=== PATIENT | male | born 1960 | race Caucasian/White ===

== ENCOUNTER → 2019-02-03 | Outpatient (CLI) | payer OTHER ==
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
--- NOTE | 2019-02-10 11:29 | P.ARTDOP ---
Arterial Doppler LOWER EXTREMITY ARTERIAL DOPPLER: DATE OF SERVICE: 02/03/2019 Reason for study: Bilateral leg pain. Doppler waveforms: Multiphasic bilaterally throughout. Pulse volume recording: []. Pressure gradients: None. Ankle-brachial indices: Greater than 1 bilaterally. Toe pressures: [] on the right, [] on the left Impression: Normal study.
== END | disposition home or self-care (01) ==
LOC: RADUSWWP 06:46
PROVIDERS: ATTEND Family Medicine
DX: M79.669 Pain in unspecified lower leg (principal)
CPT/HCPCS: 93922; 93970

== ENCOUNTER → 2019-06-29 | Outpatient (CLI) | payer OTHER ==
--- NOTE | 2019-07-01 12:01 | ECHOF ---
Referral Reason:I10 hypertension MEASUREMENTS -------- HEIGHT: 182.9 cm WEIGHT: 158.8 kg BP: RVIDd: 4.1 cm (< 3.3) IVSd: 1.7 cm (0.6 - 1.1) LVIDd: 5.2 cm (3.9 - 5.3) LVPWd: 1.3 cm (0.6 - 1.1) IVSs: 1.8 cm LVIDs: 3.4 cm LVPWs: 1.9 cm LA Diam: 4.3 cm (2.7 - 3.8) LAESV Index (A-L): 26.50 ml/m Ao Diam: 3.2 cm (2.0 - 3.7) AV Cusp: 1.8 cm (1.5 - 2.6) LA Diam: 4.7 cm (2.7 - 3.8) MV EXCURSION: 15.748 mm (> 18.000) MV EF SLOPE: 58 mm/s (70 - 150) EPSS: 0.4 cm MV E Mykel: 0.37 m/s MV DecT: 239 ms MV A Mykel: 0.51 m/s MV E/A Ratio: 0.72 RAP: 5.00 mmHg RVSP: 13.52 mmHg FINDINGS -------- Sinus rhythm. This was a technically adequate study. Morbid Obesity The left ventricular size is normal. There is severe concentric left ventricular hypertrophy. Ove rall left ventricular systolic function is normal with, an EF between 55 - 60 %. The right ventricle is severely enlarged. Normal LA size by volume 22+/-6 ml/m2. The right atrial size is normal. The aortic valve is trileaflet, and appears structurally normal. No aortic stenosis or regurgitation. The mitral valve is normal. Mild mitral regurgitation is present. Mild tricuspid regurgitation present. Right ventricular systolic pressure is normal at < 35 mmHg. The right ventricular systolic pressure, as measured by Doppler, is 13.52mmHg. There is no pulmonic regurgitation present. The aortic root size is normal. Echo free space indicative of a pericardial fat pad. CONCLUSIONS -------- 1. Sinus rhythm. 2. Morbid Obesity 3. The left ventricular size is normal. 4. There is severe concentric left ventricular hypertrophy. 5. Overall left ventricular systolic function is normal with, an EF between 55 - 60 %. 6. The right ventricle is severely enlarged. 7. Normal LA size by volume 22+/-6 ml/m2. 8. The aortic valve is trileaflet, and appears structurally normal. No aortic stenosis or regurgitati on. 9. Mild mitral regurgitation is present. 10. Mild tricuspid regurgitation present. 11. Right ventricular systolic pressure is normal at < 35 mmHg. 12. There is no pulmonic regurgitation present. 13. Echo free space indicative of a pericardial fat pad. VEST BUSHELER: Veronique Conte RDCS
== END | disposition home or self-care (01) ==
LOC: RADECHMAIN 11:25
PROVIDERS: ATTEND Family Medicine
DX: E66.01 Morbid (severe) obesity due to excess calories (principal); I08.1 Rheumatic disorders of both mitral and tricuspid valves; I10 Essential (primary) hypertension
CPT/HCPCS: 93306

== ENCOUNTER → 2019-07-19 | Outpatient (CLI) | payer OTHER | END | disposition home or self-care (01) | LOC: RADMRIMAIN 06:47 | PROVIDERS: ATTEND Family Medicine | DX: Z53.9 Procedure and treatment not carried out, unspecified reason (principal) ==

== ENCOUNTER 2019-07-29 10:30 | Inpatient (IN) | payer OTHER ==
--- NOTE | 2019-07-29 11:48 | ED ---
General Adult HPI - General Chief complaint: Neuro Symptoms/Deficit Stated complaint: rt sided facial numbness, vision problem Time Seen by Provider: 07/29/19 10:59 Source: patient, RN notes reviewed, old records reviewed Mode of arrival: ambulatory Limitations: no limitations - History of Present Illness Initial comments: 58-year-old male presenting for evaluation of right facial numbness. Patient's symptoms began on Friday evening, he is presenting for evaluation on morning at 11 AM. He has had ongoing numbness since the onset. Denies facial droop. Denies slurred speech. Denies any extremity involvement. The numbness is throughout his forehead and temporal region as well as the right side of his face. Denies any recent URIs. Denies ear pain. Denies current headache. He states he did have a headache at the onset of his symptoms. No history of aneurysm. He himself has a history of hypertension and diabetes. - Related Data Home Medications Medication Instructions Recorded Confirmed Albuterol Inhaler [Ventolin Hfa 1 - 2 puff INHALATION RT-Q6H PRN 07/29/19 07/29/19 Inhaler] Atorvastatin Calcium [Lipitor] 10 mg PO DAILY 07/29/19 07/29/19 Lisinopril 20 mg PO BID 07/29/19 07/29/19 Metoprolol Tartrate [Lopressor] 50 mg PO BID 07/29/19 07/29/19 amLODIPine [Norvasc] 5 mg PO BID 07/29/19 07/29/19 metFORMIN HCL [Glucophage] 500 mg PO BID 07/29/19 07/29/19 Allergies Allergy/AdvReac Type Severity Reaction Status Date / Time No Known Allergies Allergy Verified 07/29/19 11:31 Review of Systems ROS Statement: Those systems with pertinent positive or pertinent negative responses have been documented in the HPI. ROS Other: All systems not noted in ROS Statement are negative. Past Medical History Past Medical History: Asthma, Diabetes Mellitus, Hyperlipidemia, Hypertension Additional Past Medical History / Comment(s): enlarged heart History of Any Multi-Drug Resistant Organisms: None Reported Past Surgical History: Hernia Repair Past Psychological History: No Psychological Hx Reported Smoking Status: Never smoker Past Alcohol Use History: Occasional Past Drug Use History: None Reported General Exam Limitations: no limitations General appearance: alert, in no apparent distress Head exam: Present: atraumatic, normocephalic Eye exam: Present: normal appearance, PERRL, EOMI ENT exam: Present: normal exam Neck exam: Present: normal inspection. Absent: tenderness, meningismus Respiratory exam: Present: normal lung sounds bilaterally. Absent: respiratory distress, wheezes Cardiovascular Exam: Present: regular rate, normal rhythm GI/Abdominal exam: Present: soft. Absent: distended, tenderness, guarding Extremities exam: Present: normal inspection, normal capillary refill. Absent: pedal edema, calf tenderness Neurological exam: Present: alert, oriented X3, motor sensory deficit (Decreased sensation over the right side of his face. Otherwise normal neurologic exam, no ataxia. ) Psychiatric exam: Present: normal affect, normal mood Skin exam: Present: warm, dry, intact. Absent: cyanosis, diaphoretic Course Vital Signs 07/29/19 10:35 Temperature 97.9 F Pulse Rate 74 Respiratory 19 Rate Blood Pressure 154/98 O2 Sat by Pulse 97 Oximetry EKG Findings - EKG Comments: EKG Findings:: EKG: Normal sinus rhythm, rate of 72, WV interval 174, QRS duration 94, QTC 424, no ST segment elevation Medical Decision Making - Medical Decision Making 58-year-old male presenting with 36 hours of right facial numbness. No weakness. No extremity involvement. Patient has multiple risk factors including hypertension, hypercholesterolemia, diabetes for CVA. He receives a workup in the emergency department including head CT which is negative for intracranial hemorrhage or mass effect. CT angiography negative for critical stenosis, or aneurysm. Chest x-ray negative for acute cardiopulmonary disease. He has normal CBC, normal CMP with the exception of hyperglycemia. He is not on aspirin or Plavix. He is initiated on 325 mg of aspirin emergency department. He will be admitted for neurology consultation, further evaluation. Case is discussed with the admitting physician Dr. Ferreira. - Lab Data Result diagrams: 07/29/19 12:20 07/29/19 12:20 Lab Results 07/29/19 07/29/19 07/29/19 Range/Units 12:20 12:20 12:20 WBC 9.9 (3.8-10.6) k/uL RBC 5.63 (4.30-5.90) m/uL Hgb 15.7 (13.0-17.5) gm/dL Hct 48.2 (39.0-53.0) % MCV 85.5 (80.0-100.0) fL MCH 27.9 (25.0-35.0) pg MCHC 32.6 (31.0-37.0) g/dL RDW 13.3 (11.5-15.5) % Plt Count 210 (150-450) k/uL Neutrophils % 66 % Lymphocytes % 24 % Monocytes % 6 % Eosinophils % 2 % Basophils % 1 % Neutrophils # 6.5 (1.3-7.7) k/uL Lymphocytes # 2.4 (1.0-4.8) k/uL Monocytes # 0.6 (0-1.0) k/uL Eosinophils # 0.2 (0-0.7) k/uL Basophils # 0.1 (0-0.2) k/uL PT 9.6 (9.0-12.0) sec INR 0.9 (<1.2) APTT 23.0 (22.0-30.0) sec Sodium 136 L (137-145) mmol/L Potassium 4.7 (3.5-5.1) mmol/L Chloride 102 (98-107) mmol/L Carbon Dioxide 25 (22-30) mmol/L Anion Gap 9 mmol/L BUN 23 H (9-20) mg/dL Creatinine 1.10 (0.66-1.25) mg/dL Est GFR (CKD-EPI)AfAm 85 (>60 ml/min/1.73 sqM) Est GFR (CKD-EPI)NonAf 73 (>60 ml/min/1.73 sqM) Glucose 235 H (74-99) mg/dL Calcium 9.4 (8.4-10.2) mg/dL Total Bilirubin 1.0 (0.2-1.3) mg/dL AST 20 (17-59) U/L ALT 25 (4-49) U/L Alkaline Phosphatase 82 (38-126) U/L Troponin I (0.000-0.034) ng/mL Total Protein 6.8 (6.3-8.2) g/dL Albumin 4.0 (3.5-5.0) g/dL 07/29/19 Range/Units 12:20 WBC (3.8-10.6) k/uL RBC (4.30-5.90) m/uL Hgb (13.0-17.5) gm/dL Hct (39.0-53.0) % MCV (80.0-100.0) fL MCH (25.0-35.0) pg MCHC (31.0-37.0) g/dL RDW (11.5-15.5) % Plt Count (150-450) k/uL Neutrophils % % Lymphocytes % % Monocytes % % Eosinophils % % Basophils % % Neutrophils # (1.3-7.7) k/uL Lymphocytes # (1.0-4.8) k/uL Monocytes # (0-1.0) k/uL Eosinophils # (0-0.7) k/uL Basophils # (0-0.2) k/uL PT (9.0-12.0) sec INR (<1.2) APTT (22.0-30.0) sec Sodium (137-145) mmol/L Potassium (3.5-5.1) mmol/L Chloride (98-107) mmol/L Carbon Dioxide (22-30) mmol/L Anion Gap mmol/L BUN (9-20) mg/dL Creatinine (0.66-1.25) mg/dL Est GFR (CKD-EPI)AfAm (>60 ml/min/1.73 sqM) Est GFR (CKD-EPI)NonAf (>60 ml/min/1.73 sqM) Glucose (74-99) mg/dL Calcium (8.4-10.2) mg/dL Total Bilirubin (0.2-1.3) mg/dL AST (17-59) U/L ALT (4-49) U/L Alkaline Phosphatase (38-126) U/L Troponin I <0.012 (0.000-0.034) ng/mL Total Protein (6.3-8.2) g/dL Albumin (3.5-5.0) g/dL Disposition Clinical Impression: Cerebrovascular accident (CVA) Disposition: ADMITTED IP TO THIS [facility] Condition: Stable Is patient prescribed a controlled substance at d/c from ED?: No Referrals: Michelet Maguire DO [Primary Care Provider] - 1-2 days Decision to Admit Reason: Admit from EC Decision Date: 07/29/19 Decision Time: 14:49
[2019-07-29 12:47] LABS: Basophils # (A) 0.1 k/uL (0-0.2); Basophils % (A) 1 %; Eosinophils # (A) 0.2 k/uL (0-0.7); Eosinophils % (A) 2 %; HCT 48.2 % (39.0-53.0); HGB 15.7 gm/dL (13.0-17.5); Lymphocytes # (A) 2.4 k/uL (1.0-4.8); Lymphocytes % (A) 24 %; MCH 27.9 pg (25.0-35.0); MCHC 32.6 g/dL (31.0-37.0); MCV 85.5 fL (80.0-100.0); Mean Platelet Volume 8.1; Monocytes # (A) 0.6 k/uL (0-1.0); Monocytes % (A) 6 %; Neutrophils # (A) 6.5 k/uL (1.3-7.7); Neutrophils % (A) 66 %; Platelet Count 210 k/uL (150-450); RBC 5.63 m/uL (4.30-5.90); RDW 13.3 % (11.5-15.5); WBC 9.9 k/uL (3.8-10.6)
[2019-07-29 13:02] LABS: Calcium 9.4 mg/dL (8.4-10.2); Potassium 4.7 mmol/L (3.5-5.1); Total Protein 6.8 g/dL (6.3-8.2)
[2019-07-29] MEDS ORDERED: SODIUM CHLORIDE 0.9% 500 ML 500 ML IV ONE ×2 (13:11→14:26)
[2019-07-29 13:21] LABS: INR 0.9 (<1.2); Prothrombin Time 9.6 sec (9.0-12.0)
--- NOTE | 2019-07-29 13:39 | XR ---
EXAMINATION TYPE: XR chest 2V DATE OF EXAM: 07/29/2019 COMPARISON: NONE HISTORY: Shortness of breath TECHNIQUE: Frontal and lateral views of the chest are obtained. FINDINGS: Scattered senescent parenchymal changes noted. Hyperinflation compatible with COPD. No evidence for infiltrate. No evidence for atelectasis. Heart size is stable. Mediastinal structures are stable and grossly unremarkable. No evidence for hilar prominence. Degenerative changes dorsal spine. IMPRESSION: 1. No evidence for acute pulmonary disease.
--- NOTE | 2019-07-29 13:39 | CT ---
EXAMINATION TYPE: CT brain wo con DATE OF EXAM: 07/29/2019 COMPARISON: 01/31/2011 HISTORY: right side facial numbness CT DLP: [address] of the brain was performed. The ventricles, basal cisterns and sulci overlying the cerebral convexities demonstrate mild enlargem ent. There is no evidence for intracranial hemorrhage or sulcal effacement. There is decreased attenuation about the periventricular white matter and deep white matter of both c erebral hemispheres, compatible with chronic small vessel ischemia. Differential diagnosis does inclu de demyelination. No mass effects are seen.No midline shift. Osseous calvarium is intact. Chronic maxillary sinusitis. If symptoms persist consider MRI. IMPRESSION: 1. Age related atrophic and chronic small vessel ischemic change without acute intracranial process s een at this time.
--- NOTE | 2019-07-29 14:15 | CT ---
EXAMINATION TYPE: CT angio head neck DATE OF EXAM: 07/29/2019 COMPARISON: None HISTORY: right side facial numbness CT DLP: 987.1 mGycm CONTRAST: Performed with IV Contrast, patient injected with 65 mL of Isovue 370. Combination Contrast CTA cervical carotids and [place] CTA cervical carotids with 3-D recons truction Contrast CTA of the cervical carotids was performed 3-D reconstruction imaging obtained at a separate workstation. Right carotid system: Mild plaque is seen of the right common carotid artery. There is mild plaque a lso noted at the carotid bulb and proximal ICA. No significant diameter reduction. ECA is patent. Right vertebral artery appears unremarkable. Left carotid system: Mild plaque is seen of the left common carotid artery. There is mild plaque als o noted at the carotid bulb and proximal ICA. No significant diameter reduction. ECA is patent. Lef t vertebral artery appears unremarkable. IMPRESSION: 1. No significant diameter reduction to account for the patient's symptoms. CTA [place] with 3-D reconstruction Contrast CTA of the [place] was performed 3-D reconstruction imaging obtained at a separate workstation. Vertebrobasilar system as well as intracranial portions of the internal carotid arteries and their [place] tributaries are patent. I do not see evidence for sizable aneurysm or vascular malformation. Pl ease note MRI provides greater sensitivity and specificity. Visualized brain appears grossly unremar kable. IMPRESSION: 1. No significant abnormality.
[2019-07-29] MEDS ORDERED: ASPIRIN 325 MG TAB PO STA (14:26)
[2019-07-29] MEDS: SODIUM CHLORIDE 0.9% 1,000 ML IV SCH (20:34)
[2019-07-29] MEDS ORDERED: NAPROXEN 250 MG TAB PO SCH (21:00)
[2019-07-29] MEDS ORDERED: ACETAMINOPHEN TAB 500 MG TAB PO PRN (22:47)
--- NOTE | 2019-07-29 22:56 | P.HPIM ---
History of Present Illness H&P Date: 07/29/19 Chief Complaint: Right facial numbness Patient is a 58-year-old male with a known history of asthma, hypertension, diabetes type 2 [id number] and occasional alcohol use came to ER with complaints of right-sided facial numbness and weakness started today a.m. Silvana ent says that has not been feeling well since Friday and developed right-sided headache mainly in the temporal region. Patient took Tylenol and went to bed and later on Friday patient felt right-sided numbness. Today a.m. in the morning when he was walking he was drifting to the right and unable to focus his vision. Patient came to ER for further evaluation. Otherwise patient denied any patient droop. No dysarthria or slurred speech. Denied any weakness in extremities. Headache has resolved now. No history of prior CVA. Denied any recent illnesses. No fever no chills. No palpitations. No complaints of chest pain or shortness of breath. No nausea vomiting or abdominal pain or diarrhea. CT head showed no acute intracranial process. Chronic is related small was ischemic changes. Chest x-ray showed no acute cardiopulmonary process CT angiogram showed no significant stenosis. EKG showed normal sinus rhythm. Blood sugar is elevated at 235 on admission Review of Systems Constitutional: Patient denies any fever or chills . No generalized weakness or weight loss. Abdomen: Patient denied nausea vomiting and diarrhea and abdominal pain. Cardiovascular: Patient denies any chest pain or short of breath no palpitations. Respiratory: patient denied any cough is from production. No shortness of breath Neurologic: Patient denied any numbness or tingling headache. Musculoskeletal: Patient denies any complaints of joint swelling or deformity. Skin: Negative Psychiatric: Negative Endocrine: No heat or cold intolerance. No recent weight gain. Genitourinary: No dysuria or hematuria. All other 14 point ROS negative except the above Past Medical History Past Medical History: Asthma, Diabetes Mellitus, Hyperlipidemia, Hypertension Additional Past Medical History / Comment(s): enlarged heart History of Any Multi-Drug Resistant Organisms: None Reported Past Surgical History: Hernia Repair Past Psychological History: No Psychological Hx Reported Smoking Status: Never smoker Past Alcohol Use History: Occasional Past Drug Use History: None Reported Medications and Allergies Home Medications Medication Instructions Recorded Confirmed Type Albuterol Inhaler [Ventolin Hfa 1 - 2 puff INHALATION RT-Q6H PRN 07/29/19 07/29/19 History Inhaler] Atorvastatin Calcium [Lipitor] 10 mg PO DAILY 07/29/19 07/29/19 History Lisinopril 20 mg PO BID 07/29/19 07/29/19 History Metoprolol Tartrate [Lopressor] 50 mg PO BID 07/29/19 07/29/19 History amLODIPine [Norvasc] 5 mg PO BID 07/29/19 07/29/19 History metFORMIN HCL [Glucophage] 500 mg PO BID 07/29/19 07/29/19 History Allergies Allergy/AdvReac Type Severity Reaction Status Date / Time No Known Allergies Allergy Verified 07/29/19 11:31 Physical Exam Vitals: Vital Signs Temp Pulse Resp BP Pulse Ox 07/29/19 19:38 97.9 F 75 18 147/96 96 07/29/19 19:36 75 18 147/96 96 07/29/19 18:53 75 18 147/96 96 07/29/19 18:30 172/96 07/29/19 18:00 147/82 07/29/19 17:00 149/96 07/29/19 16:30 170/100 07/29/19 16:00 147/90 99 07/29/19 15:30 157/101 98 07/29/19 15:00 150/100 97 07/29/19 14:30 156/95 07/29/19 14:00 144/94 98 07/29/19 13:30 137/93 07/29/19 13:00 135/95 07/29/19 12:30 139/99 07/29/19 12:00 143/99 07/29/19 11:30 150/98 07/29/19 11:00 149/111 07/29/19 10:51 96 07/29/19 10:35 97.9 F 74 19 154/98 97 Intake and Output 07/29/19 07/29/19 07/29/19 06:59 14:59 22:59 Other: Weight 160.3 kg PHYSICAL EXAMINATION: Patient is lying in the bed comfortably, no acute distress, awake alert and oriented.. HEENT: Normocephalic. Neck is supple. Pupils reactive. Nostrils clear. Oral cavity is moist. Ears reveal no drainage. Neck reveals no JVD, carotid bruits, or thyromegaly. CHEST EXAMINATION: Trachea is central. Symmetrical expansion. Lung river clear to auscultation and percussion. CARDIAC: Normal S1, S2 with no gallops. No murmurs ABDOMEN: Soft. Bowel sounds normal. No organomegaly. No abdominal bruits. Extremities: reveal no edema. No clubbing or cyanosis Neurologically awake, alert, oriented x3 with well-coordinated movements. No focal deficits noted Skin: No rash or skin lesions. Psychiatric: Coperative. Nonsuicidal Musculoskeletal: No joint swelling or deformity. Normal range of motion. Results CBC & Chem 7: 07/29/19 12:20 07/29/19 12:20 Labs: Abnormal Lab Results - Last 24 Hours (Table) 07/29/19 Range/Units 12:20 Sodium 136 L (137-145) mmol/L BUN 23 H (9-20) mg/dL Glucose 235 H (74-99) mg/dL Thrombosis Risk Factor Assmnt - DVT/VTE Prophylaxis DVT/VTE Prophylaxis: Pharmacologic Prophylaxis ordered Assessment and Plan Assessment: Right-sided facial numbness and GERD came to the right along with loss of visual acuity. Possible acute CVA. CT head and CTA negative. Uncontrolled hypertension Hyperglycemia with uncontrolled diabetes type 2 Hyperlipidemia Asthma stable No history of smoking Morbid obesity with BMI 46.6 DVT prophylaxis with heparin subcu Plan: Patient will be continued on aspirin 325 mg daily. Lipid profile, A1c and TSH level was ordered. Continue with insulin sliding scale and metformin. Patient be continued on Norvasc, metoprolol and lisinopril as per his home dose and titrate as needed. Neurology and ophthalmology was consulted. Further recommendations based on the clinical course. Time with Patient: Greater than 30
[2019-07-29 22:58] LABS: Glucose,Whole Blood 206 mg/dL (75-99)
[2019-07-29] MEDS: INSULIN ASPART (NovoLOG) 100 UNIT/ML VIAL SQ SCH (23:18)
[2019-07-29] MEDS: HEPARIN SODIUM,PORCINE 5,000 UNIT/ML 1 ML VIAL SQ SCH (23:19)
[2019-07-29] MEDS: amLODIPine 5 MG TAB PO SCH (23:19)
[2019-07-30] MEDS ORDERED: ALBUTEROL NEBULIZED 2.5 MG/3 ML INHALATION PRN (02:37)
[2019-07-30 06:22] LABS: Glucose,Whole Blood 166 mg/dL (75-99)
[2019-07-30] MEDS: INSULIN ASPART (NovoLOG) 100 UNIT/ML VIAL SQ SCH ×4 (06:27→21:29)
[2019-07-30] MEDS ORDERED: metFORMIN 500 MG TAB PO SCH (09:00)
[2019-07-30] MEDS: ASPIRIN 325 MG TAB PO SCH (09:35)
[2019-07-30] MEDS: METOPROLOL TARTRATE 50 MG TAB PO SCH ×2 (09:35→21:22)
[2019-07-30] MEDS: ATORVASTATIN 10 MG TAB PO SCH (09:36)
[2019-07-30] MEDS: LISINOPRIL 20 MG TAB PO SCH ×2 (09:36→21:22)
[2019-07-30] MEDS: ACETAMINOPHEN TAB 500 MG TAB PO PRN ×3 (09:36→21:25)
[2019-07-30] MEDS: amLODIPine 5 MG TAB PO SCH ×2 (09:36→21:22)
[2019-07-30] MEDS: HEPARIN SODIUM,PORCINE 5,000 UNIT/ML 1 ML VIAL SQ SCH ×3 (09:37→23:37)
--- NOTE | 2019-07-30 11:00 | ECHOF ---
Referral Reason:Thrombus MEASUREMENTS -------- HEIGHT: 180.3 cm WEIGHT: 160.1 kg BP: 154/98 RVIDd: 3.6 cm (< 3.3) IVSd: 1.7 cm (0.6 - 1.1) LVIDd: 4.4 cm (3.9 - 5.3) LVPWd: 1.5 cm (0.6 - 1.1) IVSs: 2.0 cm LVIDs: 2.4 cm LVPWs: 2.1 cm Ao Diam: 4.2 cm (2.0 - 3.7) AV Cusp: 2.9 cm (1.5 - 2.6) LA Diam: 3.6 cm (2.7 - 3.8) MV EXCURSION: 16.052 mm (> 18.000) MV EF SLOPE: 31 mm/s (70 - 150) EPSS: 0.5 cm MV E Mykel: 0.64 m/s MV DecT: 300 ms MV A Mykel: 0.80 m/s MV E/A Ratio: 0.80 RAP: 15.00 mmHg RVSP: 24.63 mmHg FINDINGS -------- Sinus rhythm. This was a technically adequate study. The left ventricular size is normal. There is moderate concentric left ventricular hypertrophy. O verall left ventricular systolic function is normal with, an EF between 55 - 60 %. The right ventricle is moderately enlarged. The left atrial size is normal. The right atrial size is normal. ASD VS PFO. The aortic valve is trileaflet and appears structurally normal. The mitral valve is normal. The mitral valve leaflets are mildly thickened. Mild mitral annular c alcification present. Mild mitral regurgitation is present. The tricuspid valve appears structurally normal. Mild tricuspid regurgitation present. Right vent ricular systolic pressure is normal at < 35 mmHg. There is no pulmonic regurgitation present. The aortic root is dilated measuring 4.2 cm. The inferior vena cava is mildly dilated. There is no pericardial effusion. CONCLUSIONS -------- 1. Sinus rhythm. 2. This was a technically adequate study. 3. The left ventricular size is normal. 4. There is moderate concentric left ventricular hypertrophy. 5. Overall left ventricular systolic function is normal with, an EF between 55 - 60 %. 6. The left atrial size is normal. 7. The right atrial size is normal. 8. ASD VS PFO. 9. The aortic valve is trileaflet and appears structurally normal. 10. The mitral valve is normal. 11. The mitral valve leaflets are mildly thickened. 12. Mild mitral annular calcification present. 13. Mild mitral regurgitation is present. 14. The tricuspid valve appears structurally normal. 15. Mild tricuspid regurgitation present. 16. Right ventricular systolic pressure is normal at < 35 mmHg. 17. There is no pulmonic regurgitation present. 18. The aortic root is dilated measuring 4.2 cm. 19. The inferior vena cava is mildly dilated. 20. There is no pericardial effusion. [employer] INSTALLER AND SERVICER: Dayana Taveras RDCS
[2019-07-30] MEDS ORDERED: ARTIFICIAL TEARS-HYPROMELLOSE DROPS 15 ML BTL BOTH EYES PRN (11:21)
[2019-07-30] MEDS ORDERED: TROPICAMIDE 1% OPHTH DROPS 2 ML BTL BOTH EYES ONE (11:21)
[2019-07-30] MEDS ORDERED: PROPARACAINE 0.5% OPHTH DROPS 15 ML BTL BOTH EYES STA (11:21)
--- NOTE | 2019-07-30 11:21 | P.CNNES ---
History of Present Illness Consult date: 07/30/19 Requesting physician: Lucien Peterson Reason for Consult: CVA History of Present Illness: Patient is a 58-year-old male with history of hypertension, diabetes, hyperlipidemia, states that on 07/27/2019, in the afternoon he noticed a headache. He laid down for half an hour. Later on he went to a dinner with his kids at around 7:30 PM. He was standing, when he suddenly felt a sharp pain in the right sikh almost like a knife sticking in. He went home, and took Tylenol and slept. About couple hours later he woke up, the headache was gone, but he noticed tingling in the right facial region like he slept wrong. Almost felt like a novocaine shot. The next day on Friday, he continued to feel n umbness over the right facial region with no headache. Denies any numbness of the ear, or the tongue. The numbness involves the entire right trigeminal nerve distribution although gets tingling in the distal nerve distribution involving the right side of the nose and the nostril, right paramedian side of the upper and lower lips. The numbness is more involving the right maxillary and mandibular region with some involvement of the ophthalmic division also. The numbness extends all the way up to the side of the head. No slurred speech or any symptoms attributed to the upper or lower extremities or balance issue. On , yesterday he went to the [facility]. He was driving back home, when he felt blurred vision in the right eye. He got concerned therefore decided to come to the ER, and arrived at 10:30 morning. Patient underwent computed tomography scan of the head, which revealed no acute process. Age-related atrophy and chronic small vessel ischemic change. Patient had CTA of head and neck, which was negative for any large vessel stenosis, occlusion or aneurysm. Chest x-ray was normal EKG showed normal sinus rhythm. Patient's total cholesterol is 155, LDL 95, HDL 37 and triglycerides 115. TSH is normal. Patient has been diagnosed with diabetes about 1-1/2 years ago, which is not well controlled. He has hypertension, hyperlipidemia. Denies any history of tobacco use in the past. Patient also states that he had an eye examination performed recently and his vision was 20/20 both eyes. This blurred vision in the right eye was something new. patient does not take any antiplatelet medication at home. Patient had undergone 2-D echo yesterday, which revealed sinus rhythm, EF 55- 60%. The left atrial size is normal. ASD versus PFO. Moderate concentric LVH. Review of Systems As mentioned above in detail. Otherwise completely unremarkable. All 14 point of review systems are reviewed. Past Medical History Past Medical History: Asthma, Diabetes Mellitus, Hyperlipidemia, Hypertension Additional Past Medical History / Comment(s): enlarged heart History of Any Multi-Drug Resistant Organisms: None Reported Past Surgical History: Hernia Repair Past Psychological History: No Psychological Hx Reported Smoking Status: Never smoker Past Alcohol Use History: Occasional Past Drug Use History: None Reported Medications and Allergies Home Medications Medication Instructions Recorded Confirmed Type Albuterol Inhaler [Ventolin Hfa 1 - 2 puff INHALATION RT-Q6H PRN 07/29/19 07/29/19 History Inhaler] Atorvastatin Calcium [Lipitor] 10 mg PO DAILY 07/29/19 07/29/19 History Lisinopril 20 mg PO BID 07/29/19 07/29/19 History Metoprolol Tartrate [Lopressor] 50 mg PO BID 07/29/19 07/29/19 History amLODIPine [Norvasc] 5 mg PO BID 07/29/19 07/29/19 History metFORMIN HCL [Glucophage] 500 mg PO BID 07/29/19 07/29/19 History Allergies Allergy/AdvReac Type Severity Reaction Status Date / Time No Known Allergies Allergy Verified 07/29/19 11:31 Physical Examination - Vital Signs Vital Signs: Vital Signs Temp Pulse Pulse Resp BP BP Pulse Ox 07/30/19 08:20 97.8 F 83 16 150/95 98 07/30/19 04:15 97.6 F 64 20 153/96 98 07/29/19 23:20 98.0 F 60 20 139/65 95 07/29/19 20:30 97.4 F L 74 20 158/95 97 07/29/19 19:38 97.9 F 75 18 147/96 96 07/29/19 19:36 75 18 147/96 96 07/29/19 18:53 75 18 147/96 96 07/29/19 18:30 172/96 07/29/19 18:00 147/82 07/29/19 17:00 149/96 07/29/19 16:30 170/100 07/29/19 16:00 147/90 99 07/29/19 15:30 157/101 98 07/29/19 15:00 150/100 97 07/29/19 14:30 156/95 07/29/19 14:00 144/94 98 07/29/19 13:30 137/93 07/29/19 13:00 135/95 07/29/19 12:30 139/99 07/29/19 12:00 143/99 07/29/19 11:30 150/98 Intake and Output 07/29/19 07/30/19 07/30/19 22:59 06:59 14:59 Intake Total 250 120 Balance 250 120 Intake: IV 10 Invasive Line 1 10 Oral 240 120 Other: Voiding Method Toilet Toilet Toilet # Voids 1 1 Weight 160.3 kg 158.6 kg On examination patient is a middle aged male, in no distress. Patient is alert awake oriented to time place and person. Speech and language functions are normal. Attention concentration fund of knowledge is adequate. On cranial exertion pupils are round and reactive to light, visual river are full on confrontation, external muscles intact with no nystagmus. Face is symmetric, tongue protrudes the midline. Palatal elevation and sensation normal. Patient has decreased sensation for touch and temperature over the right trigeminal nerve distribution. On muscle strength testing there is no pronator drift and the strength is normal in arms and legs distally impaired Oley. Reflexes are symmetric and plantars downgoing. Sensory touch is equal. No ataxia for [id number] testing. Tone and bulk of muscles normal. No carotid bruit or murmur, peripheral pulses present. Results - Laboratory Findings CBC and BMP: 07/29/19 12:20 07/29/19 12:20 Abnormal Lab Findings: Abnormal Labs 07/29/19 07/29/19 07/29/19 12:20 12:20 22:56 Sodium 136 L BUN 23 H Glucose 235 H POC Glucose (mg/dL) 206 H HDL Cholesterol 37 L 07/30/19 06:20 Sodium BUN Glucose POC Glucose (mg/dL) 166 H HDL Cholesterol Assessment and Plan Assessment: * 58-year-old male admitted with numbness involving the right trigeminal nerve distribution. He had transient pain in the right sikh for a few hours followed by numbness of the right facial region. 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 This may be related to diabetes, not well controlled. * Hypertension * Diabetes * Hyperlipidemia, controlled * Obesity Plan: * We will check an MRI of the brain to rule out acute CVA. * Patient's 2-D echo reported "ASD versus PFO". Suggest cardiology consult ation. * Await hemoglobin A1c level. * Continue aspirin 325 mg daily for now. If the MRI rules out stroke, then can decrease aspirin to 81 mg daily. * Continue Lipitor.
[2019-07-30 11:48] LABS: Glucose,Whole Blood 222 mg/dL (75-99)
[2019-07-30 13:11] LABS: Hemoglobin A1C 9.7 % (4.0-6.0)
--- NOTE | 2019-07-30 13:22 | P.CON ---
Consult Note - . Consult date: 07/30/19 Assessment/Plan:: 58 y/o male diagnoised in the last year as a diabetic and currently runs and A-11-C of 9.??. Presents yesterday with new onset of right facial numbness and right vision changes. Approximately 3 days ago, he felt some right temporal dis comfort and then went to bed. The following day he aware of the right CN V I decreased sensation, but generally dismissed the change in sensation. He continued to work, driving, and performing normal day to day activities without problems. He denies any change in thought, slurring of the speech, weakness, tinnitus, or other neurological symptoms. While driving he somehow felt the vision was different and checked right WRT left eye, and perceived that the vision was different. Things were legible, but somehow not clear, e.g. foggy. That was when he decided to present to the ER with the changes for further assessment and subsequently admitted for stroke/neurological problems. His past ophthalmic history is consistent with a single eye exam, in June 2019, after being prompted by his PMD following the diagnosis of diabetes. The patient states that his examination was normal, without diabetic findings, glaucoma, macular degeneration and simply needed reading glasses for his age-appropriate presbyopia. POHx: none, presbyopia PE: Va w/o correction 20/20 OU Ext: normal; normal muscle strength in eyelids, no facial drooping, no lesions. 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 2) right vision change, increased dryness on right WRT left, common problem with diabetes, changes in CNV function, myopic shift from diabetes normalizing as control is improved - more hypermetropia? P: 1) Recommend returning to Dr. Gamino when released for follow up. Possible r efractive shift? 2) apply artificial tears several times daily, perhaps dry eye, is only problem related to the vision change 3) Will return to follow in house if there are other vision changes which take place or a problem related to the eyes. 4) thank you for the consult.
[2019-07-30] MEDS ORDERED: ASPIRIN 325 MG TAB PO SCH (14:32)
--- NOTE | 2019-07-30 15:03 | MR ---
EXAMINATION TYPE: MR brain wo con DATE OF EXAM: 07/30/2019 COMPARISON: CT brain from yesterday. HISTORY: CVA versus trigeminal nerve disorder. Right-sided facial numbness on admission yesterday. TECHNIQUE: Multiplanar, multisequence imaging of the brain and brainstem is performed without IV cont rast. FINDINGS: Diffusion weighted images demonstrate no evidence of a recent infarct or other diffusion abnormality. There is no worrisome extra-axial fluid collection. There is diffuse ventricular and sulcal prominenc e. There is multifocal areas of T2 hyperintensity throughout the superficial, deep, and periventricul ar white matter. Midline structures demonstrate normal morphology. The craniocervical junction appears within normal limits. Normal vascular flow voids are present. Dominant left vertebral artery is incidentally noted. Fluid signal fills left maxillary sinus. Mild mucosal thickening in the ethmoid sinuses bilaterally. Globes are intact bilaterally. IMPRESSION: 1. No evidence of a recent infarct. 2. Mild diffuse cerebral atrophy with moderate to advanced nonspecific white matter changes favored o n basis of product of chronic small vessel ischemic change and patient this age. Other etiologies nunez ch as product of fractures process such as Lyme disease are in the differential. 3. Persistent acute left maxillary sinus disease suspected. Correlate clinically.
[2019-07-30] MEDS: SODIUM CHLORIDE 0.9% 1,000 ML IV SCH (16:00)
[2019-07-30] MEDS: PHENYLEPHRINE 2.5% OPHTH DRP 2ML BOTH EYES SCH (16:00)
[2019-07-30 16:46] LABS: Glucose,Whole Blood 164 mg/dL (75-99)
[2019-07-30] MEDS ORDERED: INSULIN DETEMIR (LEVEMIR) 100 UNIT/ML SYR SQ SCH (21:00)
[2019-07-30 21:11] LABS: Glucose,Whole Blood 128 mg/dL (75-99)
[2019-07-31] MEDS: ACETAMINOPHEN TAB 500 MG TAB PO PRN (04:18)
[2019-07-31 06:16] LABS: Glucose,Whole Blood 166 mg/dL (75-99)
[2019-07-31] MEDS: INSULIN ASPART (NovoLOG) 100 UNIT/ML VIAL SQ SCH ×2 (06:37→12:06)
[2019-07-31 08:16] VITALS: RESP 20; TEMP 97.7
[2019-07-31] MEDS: ASPIRIN 325 MG TAB PO SCH (08:21)
[2019-07-31] MEDS: amLODIPine 5 MG TAB PO SCH (08:21)
[2019-07-31] MEDS: LISINOPRIL 20 MG TAB PO SCH (08:21)
[2019-07-31] MEDS: METOPROLOL TARTRATE 50 MG TAB PO SCH (08:21)
[2019-07-31] MEDS: ATORVASTATIN 10 MG TAB PO SCH (08:21)
[2019-07-31] MEDS: HEPARIN SODIUM,PORCINE 5,000 UNIT/ML 1 ML VIAL SQ SCH (08:21)
[2019-07-31 11:12] VITALS: BMI 46.3
[2019-07-31 11:46] LABS: Glucose,Whole Blood 219 mg/dL (75-99)
[2019-07-31 12:00] VITALS: BP 150/92; PULSE 71
[2019-07-31] MEDS: PHENYLEPHRINE 2.5% OPHTH DRP 2ML BOTH EYES SCH (12:01)
--- NOTE | 2019-07-31 14:40 | P.CRDCN ---
History of Present Illness History of present illness: This is Evelin Burton PA-C dictating a consult on this patient The patient was interviewed and examined by me as well as by Dr. Mcginnis Case discussed with Dr. Mcginnis and he agrees with the plan of care HPI Patient is a 58-year-old male with a past medical history significant for diabetes, hypertension, and dyslipidemia who presented with complaints of numbness in his face. 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 He states that on Friday he had severe pain in his right taoist and he went to bed. The next morning he woke up with numbness in the right side of his face. His symptoms got progressively worse and he noticed he had blurriness in his right eye. He presented to the hospital for further evaluation. CT angiogram showed no significant abnormality, mild carotid atherosclerosis bilaterally with no significant diameter reduction. MRI showed a possible acute lacunar infarct. Cardiology was consulted because he had an echocardiogram which showed a possible ASD versus PFO. Patient seen and examined resting in bed. States he still has some numbness on the right side of his face. Denies any dizziness, palpitations, chest pain or shortness of breath. No vertigo. ROS: No fevers, chills or rigors, no cough, phlegm or expectoration, no nausea, vomiting or diarrhea, no hematuria, dysuria, no musculoskeletal complaints, Positive for stroke no skin lesions. EXAMINATION: Temperature 97.7F, pulse 70, respirations 20, blood pressure 150/92, oxygen saturation 97% on room air Patient seen and examined resting in bed, in no acute distress Lungs are clear to auscultation bilaterally Heart is regular, normal S1-S2 , no audible murmurs No elevated JVD or lower extremity edema REVIEW OF LABS, ECG & MEDICAL DATA WBC 9.9, hemoglobin 15.7, platelets 210, potassium 4.7, BUN 23, creatinine 1.1 Troponin negative. Hemoglobin A1c 9.7 LDL 95 EKG shows sinus rhythm with no acute abnormalities IMPRESSION / ASSESSMENT: numbness on the right side of the face secondary to acute lacunar infarct, neurology following Hypertension, blood pressure has been elevated in the 140s to 150s systolic over 80s to 90s diastolic Diabetes, poorly controlled, A1c 9.[address] angiogram showing no significant carotid artery stenosis bilaterally Recent echocardiogram showing possible ASD versus PFO PLAN: Possible acute lacunar infarct is more suggestive of atherosclerotic causes versus embolic causes, optimize his blood pressure control, cholesterol, and diabetes control increase atorvastatin to 40 mg daily, goal LDL less than 50 Switched from lisinopril to valsartan 160 mg twice a day may consider BEATRIZ to evalute for PFO vs ASD in the future Past Medical History Past Medical History: Asthma, Diabetes Mellitus, Hyperlipidemia, Hypertension Additional Past Medical History / Comment(s): enlarged heart History of Any Multi-Drug Resistant Organisms: None Reported Past Surgical History: Hernia Repair Past Psychological History: No Psychological Hx Reported Smoking Status: Never smoker Past Alcohol Use History: Occasional Past Drug Use History: None Reported Medications and Allergies Home Medications Medication Instructions Recorded Confirmed Type Albuterol Inhaler [Ventolin Hfa 1 - 2 puff INHALATION RT-Q6H PRN 07/29/19 07/29/19 History Inhaler] Atorvastatin Calcium [Lipitor] 10 mg PO DAILY 07/29/19 07/29/19 History Lisinopril 20 mg PO BID 07/29/19 07/29/19 History Metoprolol Tartrate [Lopressor] 50 mg PO BID 07/29/19 07/29/19 History amLODIPine [Norvasc] 5 mg PO BID 07/29/19 07/29/19 History metFORMIN HCL [Glucophage] 500 mg PO BID 07/29/19 07/29/19 History Allergies Allergy/AdvReac Type Severity Reaction Status Date / Time No Known Allergies Allergy Verified 07/29/19 11:31 Physical Exam Vitals: Vital Signs Temp Pulse Resp BP Pulse Ox 07/31/19 11:59 97.7 F 71 20 150/92 97 07/31/19 08:00 97.7 F 95 20 145/88 96 07/31/19 04:21 97.9 F 66 18 136/76 96 07/30/19 23:45 98.1 F 66 16 124/78 97 07/30/19 21:12 98.4 F 78 18 142/76 98 07/30/19 15:45 98.1 F 80 16 154/97 96 Intake and Output 07/30/19 07/31/19 07/31/19 22:59 06:59 14:59 Intake Total 840 Balance 840 Intake: Oral 840 Other: Voiding Method Toilet Toilet # Voids 1 2 Weight 159.4 kg 159.4 kg Results 07/29/19 12:20 07/29/19 12:20 Current Medications Generic Name Dose Route Start Last Admin Trade Name Freq PRN Reason Stop Dose Admin Acetaminophen 1,000 mg 07/30/19 09:26 07/31/19 04:18 Tylenol Tab PO 1,000 mg Q6HR PRN Administration Fever and/ or Pain Albuterol Sulfate 2.5 mg 07/30/19 02:37 Ventolin Nebulized INHALATION RT-Q6H PRN Shortness Of Breath Amlodipine Besylate 5 mg 07/29/19 23:00 07/31/19 08:21 Norvasc PO 5 mg BID JASON Administration Artificial Tears 1 drops 07/30/19 11:21 Artificial Tear Drops BOTH EYES QID PRN Dry Eye(s) Aspirin 325 mg 07/30/19 09:00 07/31/19 08:21 Aspirin PO 325 mg DAILY JASON Administration Atorvastatin Calcium 40 mg 08/01/19 09:00 Lipitor PO DAILY JASON Heparin Sodium (Porcine) 5,000 unit 07/30/19 00:00 07/31/19 08:21 Heparin SQ 5,000 unit Q8HR JASON Administration Sodium Chloride 1,000 mls @ 20 mls/hr 07/29/19 14:45 07/30/19 16:00 Saline 0.9% IV Not Given .Q24H JASON Insulin Aspart 0 unit 07/29/19 23:00 07/31/19 12:06 Novolog SQ 7 unit ACHS JASON Administration Protocol Insulin Detemir 10 unit 07/30/19 21:00 07/30/19 21:22 Levemir SQ 10 unit HS JASON Administration Metoprolol Tartrate 50 mg 07/30/19 09:00 07/31/19 08:21 Lopressor PO 50 mg BID JASON Administration Phenylephrine HCl 1 drops 07/30/19 11:30 07/31/19 12:01 Wade-Synephrine Ophth BOTH EYES Not Given DIRECTED JASON Intake and Output 07/30/19 07/31/19 07/31/19 22:59 06:59 14:59 Intake Total 840 Balance 840 Intake: Oral 840 Other: Voiding Method Toilet Toilet # Voids 1 2 Weight 159.4 kg 159.4 kg Patient Weight 08/01/19 06:59 Weight 159.4 kg 07/29/19 12:20 07/29/19 12:20
--- NOTE | 2019-07-31 16:13 | P.PN ---
Subjective Progress Note Date: 07/31/19 The patient reports continued numbness of the right side of his head, forehead and cheek. The numbness also involves his right nostril. He has noted that there is a tingling sensation of his right upper and lower lip. The patient denies difficulty with speech and swallowing. He denies difficulty tasting his food. He does feel that the vision from his right eye is somewhat better than it was yesterday. Objective - Vital Signs Vital signs: Vital Signs Temp 97.7 F 07/31/19 11:59 Pulse 71 07/31/19 11:59 Resp 20 07/31/19 11:59 BP 150/92 07/31/19 11:59 Pulse Ox 97 07/31/19 11:59 Intake & Output 07/30/19 07/31/19 07/31/19 18:59 06:59 18:59 Intake Total 120 840 Balance 120 840 Weight 159.4 kg 159.4 kg Intake: Oral 120 840 Other: Voiding Method Toilet Toilet # Voids 2 1 2 - Exam Gen.: The patient is reclining in the bed. He is in no acute distress. He is obese. HEENT: Head is atraumatic, normocephalic. Fundus not visualized. There is no scleral icterus. His members are moist. Neurological examination Mental status: Patient is awake, alert and oriented 3. His speech is clear. Cranial nerves: Pupils are equal, round and reactive to light. Visual river are full to confrontation. Extraocular muscles are intact. There is no nystagmus. Facial sensation is diminished in the right V1 and V2 distributions. Sensation is intact in the right V3 distribution. There is no facial asymmetry. Motor: Strength is 5/5 throughout Sensation: Intact in the upper and lower extremities. - Labs CBC & Chem 7: 07/29/19 12:20 07/29/19 12:20 Labs: Abnormal Lab Results - Last 24 Hours (Table) 07/30/19 07/30/19 07/31/19 Range/Units 16:45 21:09 06:15 POC Glucose (mg/dL) 164 H 128 H 166 H (75-99) mg/dL 07/31/19 Range/Units 11:41 POC Glucose (mg/dL) 219 H (75-99) mg/dL Assessment and Plan Assessment: Impressions: 1.Right medullary infarct 2. Stroke risk factors include hypertension, poorly controlled diabetes mellitus, obesity and hypercholesterolemia Plan: Recommendations 1. I agree with BEATRIZ, to further evaluate the heart 2. Patient should continue on aspirin and high-dose statin. 3. Healthy diet and exercise are recommended 4. Patient should follow up with neurology as an outpatient Time with Patient: Less than 30 (25 minutes spent with patient via teleneurology)
[2019-07-31] MEDS ORDERED: VALSARTAN 160 MG TAB PO SCH (21:00)
[2019-08-01] MEDS ORDERED: ATORVASTATIN 40 MG TAB PO SCH (09:00)
== END 2019-07-31 16:05 | disposition home or self-care (01) | DRG 65 ==
LOC: EC 10:30 → 3SCARD 14:31
PROVIDERS: ADMIT Internal Medicine; ATTEND Internal Medicine
DX: I63.81 Other cerebral infarction due to occlusion or stenosis of small artery (principal); Z68.42 Body mass index [BMI] 45.0-49.9, adult; Q21.1 Atrial septal defect; I11.9 Hypertensive heart disease without heart failure; E11.65 Type 2 diabetes mellitus with hyperglycemia; J45.909 Unspecified asthma, uncomplicated; R20.0 Anesthesia of skin; E78.5 Hyperlipidemia, unspecified; R40.2142 Coma scale, eyes open, spontaneous, at arrival to emergency department; R40.2252 Coma scale, best verbal response, oriented, at arrival to emergency department; R29.702 NIHSS score 2; R40.2362 Coma scale, best motor response, obeys commands, at arrival to emergency department; K21.9 Gastro-esophageal reflux disease without esophagitis; E66.01 Morbid (severe) obesity due to excess calories; H53.8 Other visual disturbances; H52.4 Presbyopia; H04.123 Dry eye syndrome of bilateral lacrimal glands; Z98.890 Other specified postprocedural states; Z79.899 Other long term (current) drug therapy; Z79.84 Long term (current) use of oral hypoglycemic drugs
CPT/HCPCS: 36415; 70450; 70496; 70498; 70551; 71046; 80053; 80061; 83036; 84443; 84484; 85025; 85610; 85730; 86618; 93005; 93306; 96360; 96361; 99285

== ENCOUNTER → 2021-02-05 | Outpatient (CLI) | payer BC ==
[2021-02-05 23:51] LABS: HCT 49.5 % (39.6-50.0); HGB 15.3 g/dL (13.0-17.0); MCHC 30.9 g/dL (32.0-37.0); MCV 87.5 fL (80.0-97.0); Platelet Count 250 X 10*3/uL (140-440); RBC 5.66 X 10*6/uL (4.40-5.60); RDW 13.2 % (11.5-14.5); WBC 12.05 X 10*3/uL (4.50-10.00)
[2021-02-06 04:34] LABS: African American GFR (CKD) 68.3 (60.0-200.0); Albumin 4.3 g/dL (3.80-4.90); Albumin/Globulin Ratio 1.72 (1.60-3.17); Anion Gap 12.7 mmol/L (4.00-12.00); BUN/Creat Ratio 14.62 Ratio (12.00-20.00); Calcium 9.8 mg/dL (8.7-10.3); Carbon Dioxide 24.3 mmol/L (21.6-31.8); Globulin 2.5 g/dL (1.6-3.3); Non-African American GFR(CKD) 58.9 (60.0-200.0); Potassium 4.7 mmol/L (3.5-5.5); Total Bilirubin 0.4 mg/dL (0.3-1.2); Total Protein 6.8 g/dL (6.2-8.2)
[2021-02-06 04:45] LABS: Prostate Specific Antigen 0.4 ng/mL (0.0-4.5)
== END | disposition home or self-care (01) ==
LOC: LABWHC1 15:41
PROVIDERS: ATTEND Family Medicine
DX: Z00.00 Encounter for general adult medical examination without abnormal findings (principal)
CPT/HCPCS: 36415; 80053; 82306; 83036; 84153; 85027

== ENCOUNTER → 2021-05-17 | Outpatient (CLI) | payer BC ==
[2021-05-17 23:21] LABS: HCT 44.4 % (39.6-50.0); HGB 14.5 g/dL (13.0-17.0); MCH 27.6 pg (27.0-32.0); MCHC 32.7 g/dL (32.0-37.0); MCV 84.6 fL (80.0-97.0); Mean Platelet Volume 10.6 fL (9.5-12.2); Platelet Count 253 X 10*3/uL (140-440); RBC 5.25 X 10*6/uL (4.40-5.60); RDW 13.2 % (11.5-14.5); WBC 11.81 X 10*3/uL (4.50-10.00)
[2021-05-18 04:59] LABS: African American GFR (CKD) 53.1 (60.0-200.0); BUN/Creat Ratio 16.38 Ratio (12.00-20.00); Blood Urea Nitrogen 26.2 mg/dL (9.0-27.0); Calcium 9.7 mg/dL (8.7-10.3); Non-African American GFR(CKD) 45.8 (60.0-200.0); Potassium 4.1 mmol/L (3.5-5.5)
== END | disposition home or self-care (01) ==
LOC: LABWHC1 15:41
PROVIDERS: ATTEND Family Medicine
DX: I10 Essential (primary) hypertension (principal); E11.65 Type 2 diabetes mellitus with hyperglycemia; E78.5 Hyperlipidemia, unspecified; E55.9 Vitamin D deficiency, unspecified
CPT/HCPCS: 36415; 80048; 82306; 83036; 84450; 84460; 85027

== ENCOUNTER → 2021-08-01 | Outpatient (CLI) | payer BC ==
[2021-08-01 22:33] LABS: HCT 46.8 % (39.6-50.0); HGB 14.7 g/dL (13.0-17.0); MCH 27.8 pg (27.0-32.0); MCHC 31.4 g/dL (32.0-37.0); MCV 88.5 fL (80.0-97.0); Mean Platelet Volume 10.4 fL (9.5-12.2); Platelet Count 277 X 10*3/uL (140-440); RBC 5.29 X 10*6/uL (4.40-5.60); RDW 13.9 % (11.5-14.5); WBC 13.15 X 10*3/uL (4.50-10.00)
[2021-08-01 23:15] LABS: African American GFR (CKD) 57.9 (60.0-200.0); Anion Gap 11.5 mmol/L (10.00-18.00); BUN/Creat Ratio 14.77 Ratio (12.00-20.00); Calcium 9.5 mg/dL (8.7-10.3); Carbon Dioxide 25.8 mmol/L (20.0-27.5); Non-African American GFR(CKD) 49.9 (60.0-200.0); Potassium 4.1 mmol/L (3.5-5.5)
== END | disposition home or self-care (01) ==
LOC: LABWHC1 15:20
PROVIDERS: ATTEND Family Medicine
DX: I10 Essential (primary) hypertension (principal); N28.9 Disorder of kidney and ureter, unspecified; E11.65 Type 2 diabetes mellitus with hyperglycemia
CPT/HCPCS: 36415; 80048; 83036; 85027

== ENCOUNTER → 2021-12-21 | Outpatient (CLI) | payer BC ==
--- NOTE | 2021-12-21 16:07 | CT ---
EXAMINATION TYPE: CT angio chest DATE OF EXAM: 12/21/2021 COMPARISON: None HISTORY: dyspnea CT DLP: 1069.8 mGycm Automated exposure control for dose reduction was used. CONTRAST: CTA scan of the thorax is performed with IV Contrast, patient injected with 80ml mL of Isovue 370, pu lmonary embolism protocol. MIP images are created and reviewed. 3D reconstructed images are created on an independent workstation and reviewed. FINDINGS: LUNGS: The lungs show some scattered vague areas of increased attenuation, groundglass opacity is que stioned, axial image 135 left lower lobe medially, left upper lobe axial image 39 medially, there is no concerning parenchymal mass or nodule identified. There is no pleural effusion or pneumothorax s een. The tracheobronchial tree is patent. AORTA: Root of the aorta measures 4.7 cm, proximal ascending aorta partially 3.9 cm, proximal descen ding aorta 3.4 cm. MEDIASTINUM: There is less than optimal enhancement of the pulmonary artery and its branches, there i s no CT evidence for pulmonary embolism. There are no greater than 1 cm hilar or mediastinal lymph n odes. No pericardial effusion is seen. OTHER: Liver shows low attenuation possibly due to underlying hepatic steatosis. Small hiatal hernia present. IMPRESSION: EXAM IS LIMITED FOR EVALUATION FOR PULMONARY EMBOLUS. THERE MAY BE SOME UNDERLYING PNEUMONITIS, CONSI CHANG POSSIBLE EARLY PNEUMONIA, ALLERGIC ALVEOLITIS. ANEURYSMAL APPEARANCE OF THE AORTA.
== END | disposition home or self-care (01) ==
LOC: RADCTMAIN 14:35
PROVIDERS: ATTEND Family Medicine
DX: K76.0 Fatty (change of) liver, not elsewhere classified (principal); K44.9 Diaphragmatic hernia without obstruction or gangrene
CPT/HCPCS: 82565; 84520; 71275; 36415; Q9967

== ENCOUNTER → 2023-09-17 | Outpatient (CLI) | payer BC ==
[2023-09-17 11:15] LABS: HCT 49.8 % (39.6-50.0); MCH 27.5 pg (27.0-32.0); MCHC 32.1 g/dL (32.0-37.0); MCV 85.7 FL (80.0-97.0); Mean Platelet Volume 11.1 FL (9.5-12.2); NRBC Per 100 WBC 0 X 10*3/uL (0.00-0.01); Platelet Count 238 X 10*3/uL (140-440); RBC 5.81 X 10*6/uL (4.40-5.60); RDW 13.3 % (11.5-14.5); WBC 9.13 X 10*3/uL (4.50-10.00)
[2023-09-17 11:33] LABS: ALT 37 U/L (10-49); AST 20 U/L (14-35); Albumin 4.2 g/dL (3.8-4.9); Alkaline Phosphatase 87 U/L (41-126); BUN/Creat Ratio 16.64 Ratio (12.00-20.00); Blood Urea Nitrogen 23.3 mg/dL (9.0-27.0); Calcium 9.6 mg/dL (8.7-10.3); Carbon Dioxide 25.1 mmol/L (21.6-31.8); Chloride 98 mmol/L (96-109); Chol/HDL Ratio 5.06 Ratio; Globulin 2.8 g/dL (1.6-3.3); Glucose 330 mg/dL (70-110); LDL Cholesterol,Calculated 118.7 mg/dL (0.0-131.0); Potassium 4.9 mmol/L (3.5-5.5); Prostate Specific Antigen 0.46 ng/mL (0.000-4.500); Sodium 134 mmol/L (135-145); Total Bilirubin 0.5 mg/dL (0.3-1.2)
[2023-09-17 11:33] LABS: Microalbumin Creatinine Ratio <10 mg/g Cr (0-30)
[2023-09-17 11:42] LABS: Appearance,Urine Clear (Clear); Bilirubin,Urine Negative (Negative); Blood,Urine Negative (Negative); Color,Urine Yellow (Yellow); Ketones,Urine Trace (Negative); Nitrite,Urine Negative (Negative); Specific Gravity,Urine >1.035 (1.001-1.030); Urobilinogen,Urine 0.2
== END | disposition home or self-care (01) ==
LOC: LABWHC1 06:56
PROVIDERS: ATTEND Family Medicine
DX: I10 Essential (primary) hypertension (principal); E11.65 Type 2 diabetes mellitus with hyperglycemia; N40.0 Benign prostatic hyperplasia without lower urinary tract symptoms; E78.5 Hyperlipidemia, unspecified
CPT/HCPCS: 36415; 80053; 80061; 81003; 82043; 82570; 83036; 84153; 85027